=== PATIENT | male | born 1960 ===

== ENCOUNTER → 2018-10-08 | Outpatient (CLI) | payer OTHER ==
[~2018-10-08] MED LIST: COLLAGENASE OINTMENT 30 GM TUBE ONE; LIDOCAINE/PRILOCAINE 2.5-2.5% KIT ONE; MUPIROCIN 2% OINT 22 GM TUBE ONE
== END ==
LOC: WCC 11:57
PROVIDERS: ATTEND Family Medicine
DX: E11.51 Type 2 diabetes mellitus with diabetic peripheral angiopathy without gangrene (principal); E11.8 Type 2 diabetes mellitus with unspecified complications; I87.331 Chronic venous hypertension (idiopathic) with ulcer and inflammation of right lower extremity; L97.819 Non-pressure chronic ulcer of other part of right lower leg with unspecified severity; R60.0 Localized edema; I10 Essential (primary) hypertension; I87.2 Venous insufficiency (chronic) (peripheral); M17.9 Osteoarthritis of knee, unspecified
CPT/HCPCS: 87071; 87075; 87186; 87205

== ENCOUNTER → 2018-10-15 | Outpatient (CLI) | payer OTHER ==
[~2018-10-15] MED LIST changes: +LIDOCAINE VISC 2% SOLN 15 ML UDC ONE
== END ==
LOC: WCC 08:27
PROVIDERS: ATTEND Family Medicine
DX: E11.51 Type 2 diabetes mellitus with diabetic peripheral angiopathy without gangrene (principal); E11.8 Type 2 diabetes mellitus with unspecified complications; I87.331 Chronic venous hypertension (idiopathic) with ulcer and inflammation of right lower extremity; L97.819 Non-pressure chronic ulcer of other part of right lower leg with unspecified severity; R60.0 Localized edema; I10 Essential (primary) hypertension; I87.2 Venous insufficiency (chronic) (peripheral); M17.9 Osteoarthritis of knee, unspecified

== ENCOUNTER → 2018-11-05 | Outpatient (CLI) | payer OTHER | LOC: WCC 12:15 | PROVIDERS: ATTEND Family Medicine | DX: E11.51 Type 2 diabetes mellitus with diabetic peripheral angiopathy without gangrene (principal); E11.8 Type 2 diabetes mellitus with unspecified complications; I87.331 Chronic venous hypertension (idiopathic) with ulcer and inflammation of right lower extremity; L97.819 Non-pressure chronic ulcer of other part of right lower leg with unspecified severity; R60.0 Localized edema; I10 Essential (primary) hypertension; I87.2 Venous insufficiency (chronic) (peripheral); M17.9 Osteoarthritis of knee, unspecified ==

== ENCOUNTER 2018-11-12 13:51 | Outpatient (RCR) | payer OTHER ==
[~2018-11-12 13:51] MED LIST changes: -LIDOCAINE VISC 2% SOLN 15 ML UDC ONE
[2018-11-19] MEDS ORDERED: LIDOCAINE VISC 2% SOLN 15 ML UDC ONE (13:37)
[2018-11-19] MEDS ORDERED: MUPIROCIN 2% OINT 22 GM TUBE ONE (13:37)
[2018-11-19] MEDS ORDERED: COLLAGENASE OINTMENT 30 GM TUBE ONE (13:37)
[2018-11-26] MEDS ORDERED: LIDOCAINE VISC 2% SOLN 15 ML UDC ONE (16:29)
[2018-11-26] MEDS ORDERED: COLLAGENASE OINTMENT 30 GM TUBE ONE (16:29)
[2018-11-26] MEDS ORDERED: MUPIROCIN 2% OINT 22 GM TUBE ONE (16:29)
[2018-12-03] MEDS ORDERED: COLLAGENASE OINTMENT 30 GM TUBE ONE (15:23)
[2018-12-03] MEDS ORDERED: MUPIROCIN 2% OINT 22 GM TUBE ONE (15:23)
[2018-12-03] MEDS ORDERED: LIDOCAINE/PRILOCAINE 2.5-2.5% KIT ONE (15:23)
== END 2018-12-09 ==
LOC: WCC 13:51
PROVIDERS: ATTEND Family Medicine
DX: E11.51 Type 2 diabetes mellitus with diabetic peripheral angiopathy without gangrene (principal); E11.8 Type 2 diabetes mellitus with unspecified complications; I87.331 Chronic venous hypertension (idiopathic) with ulcer and inflammation of right lower extremity; L97.819 Non-pressure chronic ulcer of other part of right lower leg with unspecified severity; R60.0 Localized edema; I10 Essential (primary) hypertension; I87.2 Venous insufficiency (chronic) (peripheral); M17.9 Osteoarthritis of knee, unspecified
CPT/HCPCS: 36415; 82948

== ENCOUNTER → 2018-11-26 | Outpatient (CLI) | payer OTHER | LOC: WCC 12:39 | PROVIDERS: ATTEND Family Medicine | DX: E11.51 Type 2 diabetes mellitus with diabetic peripheral angiopathy without gangrene (principal); E11.8 Type 2 diabetes mellitus with unspecified complications; I87.331 Chronic venous hypertension (idiopathic) with ulcer and inflammation of right lower extremity; L97.819 Non-pressure chronic ulcer of other part of right lower leg with unspecified severity; I87.2 Venous insufficiency (chronic) (peripheral); R60.0 Localized edema; I10 Essential (primary) hypertension; M17.9 Osteoarthritis of knee, unspecified ==

== ENCOUNTER → 2018-12-03 | Outpatient (CLI) | payer OTHER | LOC: WCC 11:54 | PROVIDERS: ATTEND Family Medicine | DX: E11.51 Type 2 diabetes mellitus with diabetic peripheral angiopathy without gangrene (principal); E11.8 Type 2 diabetes mellitus with unspecified complications; I87.331 Chronic venous hypertension (idiopathic) with ulcer and inflammation of right lower extremity; L97.819 Non-pressure chronic ulcer of other part of right lower leg with unspecified severity; R60.0 Localized edema; I10 Essential (primary) hypertension; I87.2 Venous insufficiency (chronic) (peripheral); M17.9 Osteoarthritis of knee, unspecified ==

== ENCOUNTER → 2018-12-10 | Outpatient (CLI) | payer OTHER ==
[~2018-12-10] MED LIST changes: +LIDOCAINE VISC 2% SOLN 15 ML UDC ONE; +MINERAL OIL/PETROLAT/GLYCERI 2OZ CRM ONE; +MINERAL OIL/PETROLAT/GLYCERI 6OZ BTL ONE
== END ==
LOC: WCC 11:29
PROVIDERS: ATTEND Family Medicine
DX: E11.51 Type 2 diabetes mellitus with diabetic peripheral angiopathy without gangrene (principal); E11.8 Type 2 diabetes mellitus with unspecified complications; I87.331 Chronic venous hypertension (idiopathic) with ulcer and inflammation of right lower extremity; L97.819 Non-pressure chronic ulcer of other part of right lower leg with unspecified severity; R60.0 Localized edema; I10 Essential (primary) hypertension; I87.2 Venous insufficiency (chronic) (peripheral); M17.0 Bilateral primary osteoarthritis of knee
CPT/HCPCS: 36415; 82948

== ENCOUNTER → 2018-12-17 | Outpatient (CLI) | payer OTHER | LOC: WCC 14:16 | PROVIDERS: ATTEND Family Medicine | DX: E11.51 Type 2 diabetes mellitus with diabetic peripheral angiopathy without gangrene (principal); E11.8 Type 2 diabetes mellitus with unspecified complications; I87.331 Chronic venous hypertension (idiopathic) with ulcer and inflammation of right lower extremity; L97.819 Non-pressure chronic ulcer of other part of right lower leg with unspecified severity; R60.0 Localized edema; I10 Essential (primary) hypertension; I87.2 Venous insufficiency (chronic) (peripheral); M17.9 Osteoarthritis of knee, unspecified ==

== ENCOUNTER → 2018-12-24 | Outpatient (CLI) | payer OTHER | LOC: WCC 11:36 | PROVIDERS: ATTEND Family Medicine | DX: E11.51 Type 2 diabetes mellitus with diabetic peripheral angiopathy without gangrene (principal); E11.8 Type 2 diabetes mellitus with unspecified complications; I87.331 Chronic venous hypertension (idiopathic) with ulcer and inflammation of right lower extremity; L97.819 Non-pressure chronic ulcer of other part of right lower leg with unspecified severity; R60.0 Localized edema; I10 Essential (primary) hypertension; I87.2 Venous insufficiency (chronic) (peripheral); M17.9 Osteoarthritis of knee, unspecified ==

== ENCOUNTER → 2018-12-31 | Outpatient (CLI) | payer OTHER | LOC: WCC 14:07 | PROVIDERS: ATTEND Family Medicine | DX: E11.51 Type 2 diabetes mellitus with diabetic peripheral angiopathy without gangrene (principal); E11.8 Type 2 diabetes mellitus with unspecified complications; I87.331 Chronic venous hypertension (idiopathic) with ulcer and inflammation of right lower extremity; L97.819 Non-pressure chronic ulcer of other part of right lower leg with unspecified severity; R60.0 Localized edema; I10 Essential (primary) hypertension; I87.2 Venous insufficiency (chronic) (peripheral); M17.9 Osteoarthritis of knee, unspecified ==

== ENCOUNTER → 2019-01-07 | Outpatient (CLI) | payer OTHER | LOC: WCC 11:50 | PROVIDERS: ATTEND Family Medicine | DX: E11.51 Type 2 diabetes mellitus with diabetic peripheral angiopathy without gangrene (principal); E11.8 Type 2 diabetes mellitus with unspecified complications; R60.0 Localized edema; I87.331 Chronic venous hypertension (idiopathic) with ulcer and inflammation of right lower extremity; L97.819 Non-pressure chronic ulcer of other part of right lower leg with unspecified severity; I10 Essential (primary) hypertension; I87.2 Venous insufficiency (chronic) (peripheral); M17.9 Osteoarthritis of knee, unspecified ==

== ENCOUNTER → 2019-01-14 | Outpatient (CLI) | payer OTHER ==
[~2019-01-14] MED LIST changes: -COLLAGENASE OINTMENT 30 GM TUBE ONE; -MINERAL OIL/PETROLAT/GLYCERI 2OZ CRM ONE; -MINERAL OIL/PETROLAT/GLYCERI 6OZ BTL ONE
== END ==
LOC: WCC 15:27
PROVIDERS: ATTEND Family Medicine
DX: E11.51 Type 2 diabetes mellitus with diabetic peripheral angiopathy without gangrene (principal); E11.8 Type 2 diabetes mellitus with unspecified complications; I87.331 Chronic venous hypertension (idiopathic) with ulcer and inflammation of right lower extremity; L97.819 Non-pressure chronic ulcer of other part of right lower leg with unspecified severity; R60.0 Localized edema; I10 Essential (primary) hypertension; I87.2 Venous insufficiency (chronic) (peripheral); M17.9 Osteoarthritis of knee, unspecified

== ENCOUNTER → 2019-01-28 | Outpatient (CLI) | payer OTHER | LOC: WCC 14:35 | PROVIDERS: ATTEND Family Medicine | DX: E11.51 Type 2 diabetes mellitus with diabetic peripheral angiopathy without gangrene (principal); E11.8 Type 2 diabetes mellitus with unspecified complications; I87.331 Chronic venous hypertension (idiopathic) with ulcer and inflammation of right lower extremity; L97.819 Non-pressure chronic ulcer of other part of right lower leg with unspecified severity; R60.0 Localized edema; I10 Essential (primary) hypertension; I87.2 Venous insufficiency (chronic) (peripheral); M17.9 Osteoarthritis of knee, unspecified ==

== ENCOUNTER → 2019-02-11 | Outpatient (CLI) | payer OTHER | LOC: WCC 09:18 | PROVIDERS: ATTEND Family Medicine | DX: E11.51 Type 2 diabetes mellitus with diabetic peripheral angiopathy without gangrene (principal); E11.8 Type 2 diabetes mellitus with unspecified complications; I87.331 Chronic venous hypertension (idiopathic) with ulcer and inflammation of right lower extremity; L97.819 Non-pressure chronic ulcer of other part of right lower leg with unspecified severity; R60.0 Localized edema; I10 Essential (primary) hypertension; I87.2 Venous insufficiency (chronic) (peripheral); M17.9 Osteoarthritis of knee, unspecified ==

== ENCOUNTER → 2019-02-25 | Outpatient (CLI) | payer OTHER | LOC: WCC 14:57 | PROVIDERS: ATTEND Family Medicine | DX: E11.51 Type 2 diabetes mellitus with diabetic peripheral angiopathy without gangrene (principal); E11.8 Type 2 diabetes mellitus with unspecified complications; I87.331 Chronic venous hypertension (idiopathic) with ulcer and inflammation of right lower extremity; L97.819 Non-pressure chronic ulcer of other part of right lower leg with unspecified severity; R60.0 Localized edema; I10 Essential (primary) hypertension; I87.2 Venous insufficiency (chronic) (peripheral); M17.9 Osteoarthritis of knee, unspecified ==

== ENCOUNTER → 2019-03-11 | Outpatient (CLI) | payer OTHER | LOC: WCC 08:25 | PROVIDERS: ATTEND Family Medicine | DX: E11.51 Type 2 diabetes mellitus with diabetic peripheral angiopathy without gangrene (principal); E11.8 Type 2 diabetes mellitus with unspecified complications; I87.331 Chronic venous hypertension (idiopathic) with ulcer and inflammation of right lower extremity; L97.819 Non-pressure chronic ulcer of other part of right lower leg with unspecified severity; R60.0 Localized edema; I10 Essential (primary) hypertension; I87.2 Venous insufficiency (chronic) (peripheral); M17.9 Osteoarthritis of knee, unspecified ==

== ENCOUNTER → 2019-03-25 | Outpatient (CLI) | payer OTHER | LOC: WCC 13:02 | PROVIDERS: ATTEND Family Medicine | DX: E11.51 Type 2 diabetes mellitus with diabetic peripheral angiopathy without gangrene (principal); E11.8 Type 2 diabetes mellitus with unspecified complications; I87.331 Chronic venous hypertension (idiopathic) with ulcer and inflammation of right lower extremity; L97.819 Non-pressure chronic ulcer of other part of right lower leg with unspecified severity; I87.2 Venous insufficiency (chronic) (peripheral); R60.0 Localized edema; I10 Essential (primary) hypertension; M17.9 Osteoarthritis of knee, unspecified ==

== ENCOUNTER → 2019-04-08 | Outpatient (CLI) | payer OTHER ==
[~2019-04-08] MED LIST changes: +FENTANYL CITRATE/PF 100MCG/2 ML INJ ONE; +HEPARIN SOD (PORCINE) 1000 UNIT/ML 30ML ONE; +HEPARIN SOD/SOD CHLORIDE 2,000 ML ONE; +IOPAMIDOL 370 MG/ML 200 ML INFUS..BTL INJ ONE; +LIDOCAINE HCL 2% LOCAL 20 ML VIAL ONE; -LIDOCAINE VISC 2% SOLN 15 ML UDC ONE; -LIDOCAINE/PRILOCAINE 2.5-2.5% KIT ONE; +MIDAZOLAM HCL 2 MG/2 ML VIAL ONE; -MUPIROCIN 2% OINT 22 GM TUBE ONE; +SODIUM CHLORIDE 0.9% 1000ML 1,000 ML ONE; +VERAPAMIL HCL 2.5 MG/ML 2 ML VIAL ONE
== END ==
LOC: WCC 13:27
PROVIDERS: ATTEND Family Medicine
DX: E11.51 Type 2 diabetes mellitus with diabetic peripheral angiopathy without gangrene (principal); E11.8 Type 2 diabetes mellitus with unspecified complications; I10 Essential (primary) hypertension; I87.2 Venous insufficiency (chronic) (peripheral); I87.331 Chronic venous hypertension (idiopathic) with ulcer and inflammation of right lower extremity; L97.819 Non-pressure chronic ulcer of other part of right lower leg with unspecified severity; M17.9 Osteoarthritis of knee, unspecified; R60.0 Localized edema